=== PATIENT | female | born 1960 | race Two or more races ===

== ENCOUNTER 2023-04-09 22:23 | Emergency (ER) | payer MEDICARE, MEDICAID ==
[~2023-04-09] VITALS: Ht 157.5 cm; Wt 65.9 kg
[2023-04-09] MEDS ORDERED: LAMO25TA25 PO (22:56)
[2023-04-09] MEDS ORDERED: LEVO75TA10 PO (22:56)
[2023-04-09] MEDS ORDERED: DULO-113 PO (22:56)
[2023-04-09] MEDS ORDERED: QUET50TA24 PO (22:56)
[2023-04-09] MEDS ORDERED: OMEG100015 PO (22:56)
[2023-04-09] MEDS ORDERED: HYDR30CR39 TP (22:56)
[2023-04-09] MEDS ORDERED: LAMO100 PO (22:56)
[2023-04-09] MEDS ORDERED: BUSP5TAB20 PO (22:56)
[2023-04-09] MEDS ORDERED: CYAN100T45 PO (22:56)
[2023-04-09 23:26] LABS: BASOPHILS % (AUTO) 0.7 % (0.0-2.0); EOSINOPHILS % (AUTO) 3.6 % (1.0-6.0); HEMATOCRIT 38.4 % (36-46); HEMOGLOBIN 12.7 g/dL (12.0-16.0); LYMPHOCYTES # (AUTO) 2.7 K/uL (1.0-4.8); MEAN CORPUSCULAR HEMOGLOBIN 29.7 pg (26.0-34.0); MEAN CORPUSCULAR HGB CONC 33.2 G/dL (31.0-37.0); MEAN CORPUSCULAR VOLUME 90 fL (80-100); MONOCYTES # (AUTO) 0.9 K/uL (0.1-1.0); NEUTROPHILS # (AUTO) 4.3 K/uL (1.8-7.7); NEUTROPHILS % (AUTO) 51.7 % (40.0-70.0); PLATELET COUNT (AUTO) 275 K/uL (150-450); RED CELL DISTRIBUTION WIDTH 14.3 % (11.5-14.5)
[2023-04-09 23:41] LABS: PROTHROMBIN TIME 10.9 SEC (9.4-11.6)
[2023-04-09 23:47] LABS: AMMONIA 14 umol/L (11-32)
[2023-04-09 23:57] LABS: SALICYLATE < 0.2 mg/dL (2.8-20.0)
[2023-04-10] LABS: ANION GAP 10 mmol/L (8-16); CALCIUM, TOTAL 8.7 mg/dL (8.8-10.5); CARBON DIOXIDE 26 mmol/L (22-29); CHLORIDE 103 mmol/L (98-107); GLOMERULAR FILTR. RATE CALC > 60 mL/min (>60); GLUCOSE,RANDOM 124 mg/dL (70-110); POTASSIUM 4.1 mmol/L (3.5-5.1); SODIUM SERUM 139 mmol/L (136-145)
[2023-04-10 00:02] LABS: CREATINE KINASE, TOTAL ONLY 78 U/L (26-192)
[2023-04-10] MEDS ORDERED: QUET25TA36 PO (00:03)
[2023-04-10 00:04] LABS: LACTIC ACID 2.2 mmol/L (0.4-2.0)
[2023-04-10 00:05] LABS: ACETAMINOPHEN < 2 mcg/mL (10-30)
[2023-04-10 00:25] LABS: ALANINE AMINOTRANSFERASE 97 U/L (12-78); ALKALINE PHOSPHATASE 131 U/L (46-116); ASPARTATE AMINOTRANSFERASE 63 U/L (15-37); BILIRUBIN,TOTAL 0.3 mg/dL (0.1-1.0); CREATINE KINASE, TOTAL ONLY 76 U/L (26-192); TOTAL PROTEIN, SERUM 6.8 g/dL (6.4-8.2)
[2023-04-10] MEDS ORDERED: SODIUM CHLORIDE 0.9% 1,000 ML IV ONE (00:30)
[2023-04-10 00:59] LABS: APPEARANCE,URINE HAZY (CLEAR); BILIRUBIN,URINE NEGATIVE (NEGATIVE); GLUCOSE, URINE (UA) NEGATIVE (NEGATIVE); KETONES,URINE TRACE mg/dL (NEGATIVE); LEUKOCYTE ESTERASE ,URINE LARGE (NEGATIVE); NITRATE,URINE NEGATIVE (NEGATIVE); OCCULT BLOOD,URINE NEGATIVE (NEGATIVE); PROTEIN,URINE 30-70 mg/dL (NEGATIVE); SPECIFIC GRAVITIY, URINE 1.033 (1.003-1.030)
[2023-04-10 01:06] LABS: BACTERIA,URINE Moderate /HPF (None Seen); RBC,URINE 0-2 /HPF (0-2)
[2023-04-10 01:07] LABS: AMPHET/METH SCREEN,URINE NEGATIVE (NEGATIVE); BARBITURATE SCREEN, URINE NEGATIVE (NEGATIVE); BENZODIAZEPINES SCREEN,URINE NEGATIVE (NEGATIVE); CANNABINOID SCREEN,URINE NEGATIVE (NEGATIVE); COCAINE SCREEN,URINE NEGATIVE (NEGATIVE); METHADONE SCREEN, URINE NEGATIVE (NEGATIVE); OPIATE SCREEN,URINE NEGATIVE (NEGATIVE); PHENCYCLIDINE SCREEN,URINE NEGATIVE (NEGATIVE); SQUAMOUS EPITHELIAL CELL,UR Moderate /LPF (None Seen)
[2023-04-10] MEDS ORDERED: CefTRIAXone 1 GM/DEXTROSE 50 ML IV ONE (02:00)
[2023-04-10 05:33] VITALS: BP 114/65
== END 2023-04-10 05:51 | disposition home or self-care (01) ==
LOC: EMS 22:24
DX: N39.0 Urinary tract infection, site not specified (principal); M19.90 Unspecified osteoarthritis, unspecified site; F32.A Depression, unspecified; E03.9 Hypothyroidism, unspecified; G89.29 Other chronic pain; M54.9 Dorsalgia, unspecified; F12.90 Cannabis use, unspecified, uncomplicated; Z98.890 Other specified postprocedural states
CPT/HCPCS: 99285; 71045; 80053; 82140; 82550; 83605; 84484; 85025; 85610; 85730; 87040; 36415; 87086; 87186; 93005; 51702; 81001; 96365; 70450; 96361; 80307 ×2; G0481; J0696; J7030; G0480

== ENCOUNTER 2023-04-15 11:28 | Emergency (ER) | payer MEDICARE, MEDICAID ==
[~2023-04-15] VITALS: Ht 152.4 cm; Wt 59.1 kg
[~2023-04-15 11:28] MED LIST: BUSP5TAB20 PO; CYAN100T45 PO; DULO-113 PO; HYDR30CR39 TP; LAMO100 PO; LAMO25TA25 PO; LEVO75TA10 PO; OMEG100015 PO; QUET25TA36 PO; QUET50TA24 PO
[2023-04-15] MEDS ORDERED: KETOROLAC TROMETHAMINE 30 MG/ML VIAL IVP ONE (12:45)
[2023-04-15] MEDS ORDERED: SODIUM CHLORIDE 0.9% 1,000 ML IV ONE (12:45)
[2023-04-15] MEDS ORDERED: ONDANSETRON HCL 4 MG/2 ML VIAL IVP ONE (12:45)
[2023-04-15 13:19] LABS: BASOPHILS % (AUTO) 1.4 % (0.0-2.0); EOSINOPHILS % (AUTO) 4.4 % (1.0-6.0); HEMATOCRIT 39.4 % (36-46); HEMOGLOBIN 12.9 g/dL (12.0-16.0); LYMPHOCYTES # (AUTO) 2.3 K/uL (1.0-4.8); MEAN CORPUSCULAR HEMOGLOBIN 29.4 pg (26.0-34.0); MEAN CORPUSCULAR HGB CONC 32.7 G/dL (31.0-37.0); MEAN CORPUSCULAR VOLUME 90 fL (80-100); MONOCYTES # (AUTO) 0.6 K/uL (0.1-1.0); MONOCYTES % (AUTO) 9.5 % (2.0-9.0); NEUTROPHILS # (AUTO) 3.3 K/uL (1.8-7.7); NEUTROPHILS % (AUTO) 49.7 % (40.0-70.0); PLATELET COUNT (AUTO) 210 K/uL (150-450); RED BLOOD CELL COUNT(AUTO) 4.37 MIL/uL (4.00-5.20); RED CELL DISTRIBUTION WIDTH 14.5 % (11.5-14.5)
[2023-04-15 13:25] LABS: APPEARANCE,URINE CLEAR (CLEAR); BILIRUBIN,URINE NEGATIVE (NEGATIVE); GLUCOSE, URINE (UA) NEGATIVE (NEGATIVE); KETONES,URINE NEGATIVE (NEGATIVE); LEUKOCYTE ESTERASE ,URINE SMALL (NEGATIVE); NITRATE,URINE NEGATIVE (NEGATIVE); OCCULT BLOOD,URINE NEGATIVE (NEGATIVE); PH,URINE 6.5 (5.0-8.0); PROTEIN,URINE TRACE mg/dL (NEGATIVE); SPECIFIC GRAVITIY, URINE 1.024 (1.003-1.030); UROBILINOGEN,URINE <=1.0 mg/dL (<=1.0)
[2023-04-15 13:28] LABS: RBC,URINE None Seen /HPF (0-2)
[2023-04-15 13:28] LABS: ANION GAP 8 mmol/L (8-16); CALCIUM, TOTAL 9.3 mg/dL (8.8-10.5); CARBON DIOXIDE 27 mmol/L (22-29); CHLORIDE 105 mmol/L (98-107); CREATININE 0.73 mg/dL (0.60-1.30); GLOMERULAR FILTR. RATE CALC > 60 mL/min (>60); GLUCOSE,RANDOM 89 mg/dL (70-110); POTASSIUM 4.3 mmol/L (3.5-5.1); SODIUM SERUM 140 mmol/L (136-145)
[2023-04-15 13:29] LABS: BACTERIA,URINE Rare /HPF (None Seen); SQUAMOUS EPITHELIAL CELL,UR Many /LPF (None Seen)
[2023-04-15 13:34] LABS: ALANINE AMINOTRANSFERASE 97 U/L (12-78); ALBUMIN 3.9 g/dL (3.4-5.0); ALKALINE PHOSPHATASE 120 U/L (46-116); ASPARTATE AMINOTRANSFERASE 70 U/L (15-37); BILIRUBIN,TOTAL 0.6 mg/dL (0.1-1.0); LIPASE 136 U/L (73-393)
[2023-04-15] MEDS ORDERED: DIPH25CA85 PO (14:13)
[2023-04-15] MEDS ORDERED: IBUP-1492 PO (14:13)
[2023-04-15] MEDS ORDERED: ACETAMINOPHEN 1000 MG/ISO-OSM 100 ML IV ONE (14:15)
[2023-04-15 14:31] VITALS: BP 130/74
== END 2023-04-15 14:52 | disposition home or self-care (01) ==
LOC: EMS 11:34
DX: R10.32 Left lower quadrant pain (principal); R10.31 Right lower quadrant pain; R51.9 Headache, unspecified; M19.90 Unspecified osteoarthritis, unspecified site; F32.A Depression, unspecified; E03.9 Hypothyroidism, unspecified; G89.29 Other chronic pain; M54.9 Dorsalgia, unspecified; Z98.890 Other specified postprocedural states
CPT/HCPCS: 99285; 96365; 71045; 96375; 96361; 80053; 81001; 83690; 84484; 85025; 36415; 87086; 87186; 93005; J1885; J2405; J7030; J0131

== ENCOUNTER 2023-05-15 14:09 | Emergency (ER) | payer MEDICARE, MEDICAID ==
[~2023-05-15] VITALS: Ht 152.4 cm; Wt 81.8 kg
[~2023-05-15 14:09] MED LIST changes: +DIPH25CA85 PO; +IBUP-1492 PO
[2023-05-15] MEDS ORDERED: OXYC10TA48 PO ×2 (15:59→16:17)
[2023-05-15] MEDS ORDERED: PENI500T2 PO ×2 (15:59→16:17)
[2023-05-15] MEDS ORDERED: NALO4SPR NASAL ×2 (16:00→16:18)
[2023-05-15] MEDS ORDERED: KETOROLAC TROMETHAMINE 60 MG/2 ML VIAL IM ONE (16:00)
[2023-05-15] MEDS ORDERED: ZOLP10TA8 PO (16:08)
[2023-05-15] MEDS ORDERED: CHOL200059 PO (16:08)
[2023-05-15 17:49] VITALS: BP 112/61
== END 2023-05-15 17:54 | disposition home or self-care (01) ==
LOC: EMS 14:10
DX: R50.9 Fever, unspecified (principal); M19.90 Unspecified osteoarthritis, unspecified site; F32.A Depression, unspecified; E03.9 Hypothyroidism, unspecified; G89.29 Other chronic pain; M54.9 Dorsalgia, unspecified; Z98.890 Other specified postprocedural states
CPT/HCPCS: 99283; 96372; J1885

== ENCOUNTER 2023-07-13 06:44 | Emergency (ER) | payer MEDICARE, MEDICAID ==
[~2023-07-13] VITALS: Ht 157.5 cm; Wt 68.2 kg
[~2023-07-13 06:44] MED LIST changes: +CARI-493 PO; +CHOL200059 PO; -DIPH25CA85 PO; -HYDR30CR39 TP; +LAMO-24 PO; -LAMO100 PO; -LAMO25TA25 PO; -QUET25TA36 PO; -QUET50TA24 PO; +ZOLP-162 PO
[2023-07-13 06:48] VITALS: TEMP 98.9
[2023-07-13] MEDS ORDERED: METHOCARBAMOL 500 MG TABLET PO ONE (08:00)
[2023-07-13] MEDS ORDERED: ONDANSETRON HCL 4 MG TABLET PO ONE (08:00)
[2023-07-13] MEDS ORDERED: KETOROLAC TROMETHAMINE 60 MG/2 ML VIAL IM ONE (08:00)
[2023-07-13 08:42] VITALS: BP 144/52; PULSE 90; RESP 16
[2023-07-13] MEDS ORDERED: IBUP-1492 PO (09:18)
[2023-07-13] MEDS ORDERED: METH-659 PO (09:19)
== END 2023-07-13 09:36 | disposition home or self-care (01) ==
LOC: EMS 06:46
DX: S16.1XXA Strain of muscle, fascia and tendon at neck level, initial encounter (principal); E78.00 Pure hypercholesterolemia, unspecified; E03.9 Hypothyroidism, unspecified; F32.A Depression, unspecified; Z88.8 Allergy status to other drugs, medicaments and biological substances; Z79.899 Other long term (current) drug therapy; X50.9XXA Other and unspecified overexertion or strenuous movements or postures, initial encounter; Y93.89 Activity, other specified; Y92.89 Other specified places as the place of occurrence of the external cause; Y99.8 Other external cause status
CPT/HCPCS: 99285; 70450; 82962; 96372; J1885; Q0162

== ENCOUNTER 2023-08-31 23:34 | Emergency (ER) | payer MEDICARE, MEDICAID ==
[~2023-08-31] VITALS: Ht 154.9 cm; Wt 80.0 kg
[~2023-08-31 23:34] MED LIST changes: +METH-659 PO
[2023-08-31 23:35] VITALS: BP 137/65; PULSE 78; RESP 20; TEMP 98.1
[2023-09-01 00:37] LABS: BASOPHILS % (AUTO) 0.9 % (0.0-2.0); HEMATOCRIT 34.8 % (36-46); HEMOGLOBIN 11.6 g/dL (12.0-16.0); LYMPHOCYTES # (AUTO) 2.8 K/uL (1.0-4.8); LYMPHOCYTES % (AUTO) 33.1 % (22.0-44.0); MEAN CORPUSCULAR HEMOGLOBIN 29.5 pg (26.0-34.0); MEAN CORPUSCULAR HGB CONC 33.3 G/dL (31.0-37.0); MEAN CORPUSCULAR VOLUME 88 fL (80-100); MONOCYTES # (AUTO) 0.9 K/uL (0.1-1.0); MONOCYTES % (AUTO) 10.4 % (2.0-9.0); NEUTROPHILS # (AUTO) 4.2 K/uL (1.8-7.7); NEUTROPHILS % (AUTO) 48.6 % (40.0-70.0); PLATELET COUNT (AUTO) 249 K/uL (150-450); RED BLOOD CELL COUNT(AUTO) 3.93 MIL/uL (4.00-5.20); RED CELL DISTRIBUTION WIDTH 13.9 % (11.5-14.5); WHITE BLOOD COUNT (AUTO) 8.6 K/uL (4.5-11.0)
[2023-09-01 00:45] LABS: ANION GAP 11 mmol/L (8-16); CALCIUM, TOTAL 8.7 mg/dL (8.8-10.5); CARBON DIOXIDE 26 mmol/L (22-29); CHLORIDE 103 mmol/L (98-107); CREATININE 0.63 mg/dL (0.60-1.30); GLOMERULAR FILTR. RATE CALC > 60 mL/min (>60); GLUCOSE,RANDOM 110 mg/dL (70-110); POTASSIUM 3.9 mmol/L (3.5-5.1); SODIUM SERUM 140 mmol/L (136-145); UREA NITROGEN, BLOOD 23 mg/dL (7-18)
[2023-09-01 00:53] LABS: TROPONIN I-HIGH SENSITIVITY 9 ng/L (<51)
[2023-09-01 01:00] LABS: ALANINE AMINOTRANSFERASE 97 U/L (12-78); ALBUMIN 3.8 g/dL (3.4-5.0); ALKALINE PHOSPHATASE 154 U/L (46-116); ASPARTATE AMINOTRANSFERASE 81 U/L (15-37); BILIRUBIN,TOTAL 0.3 mg/dL (0.1-1.0); LIPASE 59 U/L (16-77); TOTAL PROTEIN, SERUM 6.7 g/dL (6.4-8.2)
[2023-09-01 01:44] LABS: APPEARANCE,URINE HAZY (CLEAR); BILIRUBIN,URINE NEGATIVE (NEGATIVE); COLOR,URINE LIGHT YELLOW (YELLOW); GLUCOSE, URINE (UA) NEGATIVE (NEGATIVE); KETONES,URINE NEGATIVE (NEGATIVE); LEUKOCYTE ESTERASE ,URINE LARGE (NEGATIVE); NITRATE,URINE NEGATIVE (NEGATIVE); OCCULT BLOOD,URINE SMALL (NEGATIVE); PH,URINE 5.5 (5.0-8.0); PROTEIN,URINE NEGATIVE (NEGATIVE); UROBILINOGEN,URINE <=1.0 mg/dL (<=1.0)
[2023-09-01 01:57] LABS: BACTERIA,URINE Few /HPF (None Seen); SQUAMOUS EPITHELIAL CELL,UR Many /LPF (None Seen)
[2023-09-01] MEDS ORDERED: CEPHALEXIN MONOHYDRATE 500 MG CAPSULE PO ONE (02:00)
[2023-09-01] MEDS ORDERED: KETOROLAC TROMETHAMINE 30 MG/ML VIAL IM ONE (02:00)
[2023-09-01] MEDS ORDERED: IBUP-1492 PO (02:01)
[2023-09-01] MEDS ORDERED: METH-659 PO (02:01)
[2023-09-01] MEDS ORDERED: CEPH-558 PO (02:01)
== END 2023-09-01 04:11 | disposition home or self-care (01) ==
LOC: EMS 23:36
DX: N39.0 Urinary tract infection, site not specified (principal); G89.29 Other chronic pain; M54.50 Low back pain, unspecified; M19.90 Unspecified osteoarthritis, unspecified site; F32.A Depression, unspecified; E78.00 Pure hypercholesterolemia, unspecified; E03.9 Hypothyroidism, unspecified; Z98.890 Other specified postprocedural states; Z88.6 Allergy status to analgesic agent; Z88.8 Allergy status to other drugs, medicaments and biological substances
CPT/HCPCS: 99284; 80053; 81001; 83690; 84484; 85025; 36415; 87086; 87186; 93005; 96372; J1885

== ENCOUNTER 2023-12-22 10:31 | Emergency (ER) | payer MEDICARE, MEDICAID ==
[~2023-12-22] VITALS: Ht 154.9 cm; Wt 90.9 kg
[~2023-12-22 10:31] MED LIST changes: +CEPH-558 PO
[2023-12-22 10:33] VITALS: TEMP 98.1
[2023-12-22] MEDS ORDERED: KETOROLAC TROMETHAMINE 30 MG/ML VIAL IM ONE (14:00)
[2023-12-22 14:23] VITALS: BP 136/80; PULSE 80; RESP 16
[2023-12-22 15:13] LABS: BASOPHILS % (AUTO) 0.8 % (0.0-2.0); HEMATOCRIT 36.7 % (36-46); HEMOGLOBIN 12.4 g/dL (12.0-16.0); LYMPHOCYTES # (AUTO) 2.5 K/uL (1.0-4.8); LYMPHOCYTES % (AUTO) 30.1 % (22.0-44.0); MEAN CORPUSCULAR HEMOGLOBIN 29.7 pg (26.0-34.0); MEAN CORPUSCULAR HGB CONC 33.7 G/dL (31.0-37.0); MEAN CORPUSCULAR VOLUME 88 fL (80-100); MONOCYTES # (AUTO) 0.9 K/uL (0.1-1.0); MONOCYTES % (AUTO) 10.5 % (2.0-9.0); NEUTROPHILS # (AUTO) 4.7 K/uL (1.8-7.7); NEUTROPHILS % (AUTO) 55.6 % (40.0-70.0); PLATELET COUNT (AUTO) 258 K/uL (150-450); RED BLOOD CELL COUNT(AUTO) 4.17 MIL/uL (4.00-5.20); RED CELL DISTRIBUTION WIDTH 14.3 % (11.5-14.5); WHITE BLOOD COUNT (AUTO) 8.5 K/uL (4.5-11.0)
[2023-12-22 15:20] LABS: ANION GAP 11 mmol/L (8-16); CALCIUM, TOTAL 9.2 mg/dL (8.8-10.5); CARBON DIOXIDE 27 mmol/L (22-29); CHLORIDE 103 mmol/L (98-107); CREATININE 0.64 mg/dL (0.60-1.30); GLOMERULAR FILTR. RATE CALC > 60 mL/min (>60); GLUCOSE,RANDOM 110 mg/dL (70-110); POTASSIUM 3.8 mmol/L (3.5-5.1); SODIUM SERUM 141 mmol/L (136-145); UREA NITROGEN, BLOOD 21 mg/dL (7-18)
[2023-12-22 15:27] LABS: ALANINE AMINOTRANSFERASE 67 U/L (12-78); ALKALINE PHOSPHATASE 166 U/L (46-116); ASPARTATE AMINOTRANSFERASE 48 U/L (15-37); BILIRUBIN,TOTAL 0.2 mg/dL (0.1-1.0); TOTAL PROTEIN, SERUM 6.8 g/dL (6.4-8.2)
[2023-12-22 15:28] LABS: ALCOHOL, BLOOD (SERUM) < 3 mg/dL (0-10)
[2023-12-22] MEDS ORDERED: IBUP-1492 PO (15:40)
[2023-12-22 15:52] LABS: ALCOHOL, URINE DRUG SCREEN NEGATIVE (NEGATIVE); AMPHET/METH SCREEN,URINE NEGATIVE (NEGATIVE); BARBITURATE SCREEN, URINE NEGATIVE (NEGATIVE); BENZODIAZEPINES SCREEN,URINE NEGATIVE (NEGATIVE); CANNABINOID SCREEN,URINE NEGATIVE (NEGATIVE); COCAINE SCREEN,URINE NEGATIVE (NEGATIVE); METHADONE SCREEN, URINE NEGATIVE (NEGATIVE); OPIATE SCREEN,URINE NEGATIVE (NEGATIVE); PHENCYCLIDINE SCREEN,URINE NEGATIVE (NEGATIVE)
== END 2023-12-22 15:42 | disposition home or self-care (01) ==
LOC: EMS 10:31
DX: S13.4XXA Sprain of ligaments of cervical spine, initial encounter (principal); M19.90 Unspecified osteoarthritis, unspecified site; F32.A Depression, unspecified; E78.00 Pure hypercholesterolemia, unspecified; E03.9 Hypothyroidism, unspecified; G89.29 Other chronic pain; Z98.890 Other specified postprocedural states; Z88.6 Allergy status to analgesic agent; Z88.8 Allergy status to other drugs, medicaments and biological substances; X58.XXXA Exposure to other specified factors, initial encounter; Y93.89 Activity, other specified; Y92.89 Other specified places as the place of occurrence of the external cause; Y99.8 Other external cause status
CPT/HCPCS: 99283; 80053; 85025; 36415; 96372; 80307; G0480; J1885